=== PATIENT | male | born 1960 | race Caucasian/White ===

== ENCOUNTER 2019-06-11 07:39 | Emergency (ER) | payer BC ==
[~2019-06-11] VITALS: Ht 172.7 cm; Wt 73.0 kg
[2019-06-11 08:00] VITALS: BP 138/98
[2019-06-11] MEDS ORDERED: SODIUM CHLORIDE 0.9% 1,000 ML IV ONE ×2 (08:12)
[2019-06-11] MEDS ORDERED: LORAZEPAM 2MG/ML CPJ IV STA (08:12)
[2019-06-11 10:10] LABS: BASOPHILS % 0.5 % (0.0-2.0); EOSINOPHILS % 0.6 % (0.0-5.0); HEMATOCRIT. 41.3 % (42.0-52.0); HEMOGLOBIN. 14.3 g/dL (14.0-18.0); LYMPHOCYTES % 31.9 % (20.0-50.0); MEAN CORPUSCULAR HEMOGLOBIN 33.9 pg (28.0-32.0); MEAN CORPUSCULAR VOLUME 98.3 fL (80.0-94.0); MEAN PLATELET VOLUME 7.1 fl (7.4-10.4); MONOCYTES % 7.5 % (2.0-8.0); NEUTROPHILS % 59.5 % (40.0-76.0); PLATELET 197 x1000/uL (130-400); RED CELL DISTRIBUTION WIDTH 14.1 % (11.6-14.6)
[2019-06-11 10:18] LABS: CHLORIDE 110 mEq/L (98-107)
[2019-06-11 10:44] LABS: ETHANOL BLOOD 344 mg/dL
== END 2019-06-11 11:45 | disposition home or self-care (01) ==
LOC: ER 07:39
DX: F10.129 Alcohol abuse with intoxication, unspecified (principal); F41.9 Anxiety disorder, unspecified; R53.1 Weakness; Y90.8 Blood alcohol level of 240 mg/100 ml or more
CPT/HCPCS: 36415; 80053; 80320; 83735; 85025; 93005; 96361; 96374; 99284; J2060; J7030; G0480

== ENCOUNTER 2021-03-17 10:25 | Emergency (ER) | payer BC, OTHER ==
[~2021-03-17] VITALS: Ht 172.7 cm; Wt 82.0 kg
[2021-03-17 11:27] VITALS: BP 121/87
== END 2021-03-17 11:27 ==
LOC: ER 10:25
DX: F10.129 Alcohol abuse with intoxication, unspecified (principal); Y90.8 Blood alcohol level of 240 mg/100 ml or more
CPT/HCPCS: 36415; 80320; 99283; G0480